=== PATIENT | male | born 1955 | race Caucasian/White ===

== ENCOUNTER 2023-06-20 07:13 | Day surgery (SDC) | payer OTHER ==
[~2023-06-20] VITALS: Ht 172.7 cm; Wt 68.8 kg
[~2023-06-20 07:13] MED LIST: ACET500 PO; CLIN300 PO; Glucophage1000 MG PO; HYDACE5325 PO; Ibuprofen Ib200 MG PO; NAPR500 PO; OXYACE5T PO; POLTRIOPSO OD; Prinivil10 MG PO; TOBR.3OPSO OP; [UNRECOGNIZED DRUG - REMARK]; htn med
[2023-06-20] MEDS ORDERED: OZEMPIC0.25 MG/02 SQ (07:36)
[2023-06-20 09:02] VITALS: BP 117/75
== END 2023-06-20 09:24 | disposition home or self-care (01) ==
LOC: ORSCSDS 07:13
PROVIDERS: Student in an Organized Health Care Education/Training Program
PROC: 08RK3JZ Replacement of Left Lens with Synthetic Substitute, Percutaneous Approach (ICD-10-PCS; principal; 2023-06-20 08:30)
DX: E11.36 Type 2 diabetes mellitus with diabetic cataract (principal); H25.13 Age-related nuclear cataract, bilateral; I10 Essential (primary) hypertension; Z79.899 Other long term (current) drug therapy
CPT/HCPCS: 82947; J2250; J3010; J7040; V2632

== ENCOUNTER 2023-07-04 07:13 | Day surgery (SDC) | payer OTHER ==
[~2023-07-04] VITALS: Ht 172.7 cm; Wt 69.5 kg
[~2023-07-04 07:13] MED LIST changes: +OZEMPIC0.25 MG/02 SQ
[2023-07-04 08:25] VITALS: BP 133/72
--- NOTE | 2023-07-04 08:35 | NUR ---
07/04/23 0835 SIMONE GARCIA IV REMOVED W/O DIFF. RAQUEL WELL. WNL. CANNULA INTACT
== END 2023-07-04 08:45 | disposition home or self-care (01) ==
LOC: ORSCSDS 07:13
PROVIDERS: Student in an Organized Health Care Education/Training Program
PROC: 08RJ3JZ Replacement of Right Lens with Synthetic Substitute, Percutaneous Approach (ICD-10-PCS; principal; 2023-07-04 08:30)
DX: E11.36 Type 2 diabetes mellitus with diabetic cataract (principal); H25.11 Age-related nuclear cataract, right eye; Z96.1 Presence of intraocular lens; J44.9 Chronic obstructive pulmonary disease, unspecified; I10 Essential (primary) hypertension; Z79.899 Other long term (current) drug therapy
CPT/HCPCS: 82947; J2250; J3010; V2632